=== PATIENT | female | born 1990 | race Caucasian/White ===

== ENCOUNTER 2017-10-12 15:36 | Emergency (ER) | payer MEDICAID ==
[2017-10-12 15:36] VITALS: BMI 25.2
[2017-10-12 15:50] VITALS: BP 107/64; PULSE 97; RESP 18; TEMP 99.5; O2SAT 99
--- NOTE | 2017-10-12 16:30 | C.PDOC ---
History Of Present Illness Patient with fever, body aches, cough, congestion and malaise for 3 days, was seen at clinic and diagnosed with Flu and taking Tamiflu. Patient states she still is sick with sore throat, congestion and cough. She wants flu test. Denies any chest pain, SOB, abdominal pain vomiting or diarrhea. Time Seen by Provider: 10/12/17 16:12 Chief Complaint (Nursing): Flu-like Symptoms History Per: Patient History/Exam Limitations: no limitations Onset/Duration Of Symptoms: Days (3) Current Symptoms Are (Timing): Still Present Location Of Pain: Diffuse Myalgias Associated Symptoms: Fever, Sore Throat, Cough, Other (congestion, body aches ) . denies: Nausea, Vomiting, Diarrhea Past Medical History Reviewed: Historical Data, Nursing Documentation, Vital Signs Vital Signs: Last Vital Signs Temp 99.5 F 10/12/17 15:48 Pulse 97 H 10/12/17 15:48 Resp 18 10/12/17 15:48 BP 107/64 10/12/17 15:48 Pulse Ox 99 10/12/17 16:31 - Medical History PMH: Anxiety, Asthma, Gall Bladder Disease (Gallstones), Migraine Denies: Chronic Kidney Disease Surgical History: (1 month ago) - [facility] Procedures MONITORING NOS (12/12/14) LAPAROSCOPIC CHOLECYSTECTOMY (03/08/15) LAPAROSCOPIC ROBOTIC ASSISTED PROCEDURE (03/08/15) LOW CERVICAL (12/19/14) MMR ADMINISTRATION (12/19/14) Family History: States: Unknown Family Hx - Social History Hx Alcohol Use: No Hx Substance Use: No - Immunization History Hx Tetanus Toxoid Vaccination: No Hx Influenza Vaccination: No Hx Pneumococcal Vaccination: No Review Of Systems Constitutional: Positive for: Fever, Malaise Cardiovascular: Negative for: Chest Pain Respiratory: Positive for: Cough, Other (congestion ). Negative for: Shortness of Breath Gastrointestinal: Negative for: Vomiting, Abdominal Pain, Diarrhea Musculoskeletal: Positive for: Other (generalized body aches ) Physical Exam - Physical Exam Appears: Non-toxic, No Acute Distress Skin: Normal Color, Warm, Dry Head: Atraumatic, Normacephalic Eye(s): bilateral: Normal Inspection Ear(s): Bilateral: Normal Nose: Normal, No Discharge Oral Mucosa: Moist Throat: Normal, No Erythema, No Exudate Neck: Supple Chest: Symmetrical, No Deformity, No Tenderness Cardiovascular: Rhythm Regular, No Murmur Respiratory: Normal Breath Sounds, No Rales, No Rhonchi, No Wheezing Gastrointestinal/Abdominal: Soft, No Tenderness, No Guarding, No Rebound Extremity: Normal ROM, Capillary Refill (less than 2 seconds ) Neurological/Psych: Oriented x3, Normal Speech, Normal Cognition Gait: Steady ED Course And Treatment O2 Sat by Pulse Oximetry: 99 (on RA ) Pulse Ox Interpretation: Normal Medical Decision Making Medical Decision Making: Patient with multi-symptom complaints, already diagnosed with Flu and taking Tamiflu. Patient states she still is sick with congestion and cough. She wants actual flu test. I explained to patient we are treating clinically for Influenza and flu test are not 100% accurate and reserved for inpatient. Recommend sytom relief and to continue with Tamiflu. Disposition Counseled Patient/Family Regarding: Diagnosis, Need For Followup, Rx Given - Disposition Referrals: [facility] [Outside] [facility] [Outside] Disposition: HOME/ ROUTINE Disposition Time: 16:27 Condition: GOOD Additional Instructions: You have influenza. Take Tamiflu twice a day for 5 days. Take Tylenol or Motrin alternating every 4-6 hours for Fever 100.4F or higher. Rest and drink plenty of fluids. Try symptomatic relief. Symptoms can last 7-10 days. Follow up with your primary medical doctor or clinic in 2-5 days for further evaluation. Return to the emergency department at any time if symptoms persist or worsen. Prescriptions: Promethazine DM [Phenergan DM Syrup] 10 ml PO Q8 PRN #300 ml PRN Reason: Cough Instructions: Flu, Adult (DC) Forms: [employer] (E[place]ian) - POA Present On Arrival: None - Clinical Impression Clinical Impression: Influenza - PA / [employer] MANAGER / Resident Statement MD/DO has reviewed & agrees with the documentation as recorded. - Scribe Statement The provider has reviewed the documentation as recorded by the Scribe (Ceci Ahumada) All medical record entries made by the Scribe were at my direction and personally dictated by me. I have reviewed the chart and agree that the record accurately reflects my personal performance of the history, physical exam, medical decision making, and the department course for this patient. I have also personally directed, reviewed, and agree with the discharge instructions and disposition.
== END 2017-10-12 16:36 | disposition home or self-care (01) ==
LOC: C.ER 15:36
DX: J11.1 Influenza due to unidentified influenza virus with other respiratory manifestations (principal)